=== PATIENT | female | born 1945 | race Caucasian/White ===

== ENCOUNTER 2022-11-11 15:07 | Emergency (ER) | payer MEDICARE, MEDICAID ==
[~2022-11-11] VITALS: Ht 165.1 cm; Wt 76.0 kg
[2022-11-11] MEDS ORDERED: PERMETHRIN 5% CREAM 60GM TOP ONE (16:15)
[2022-11-11 17:27] VITALS: BP 142/56
== END 2022-11-11 17:31 | disposition home or self-care (01) ==
LOC: ER 15:07
DX: I10 Essential (primary) hypertension (principal); R55 Syncope and collapse; K02.9 Dental caries, unspecified; Z88.0 Allergy status to penicillin
CPT/HCPCS: 99283